=== PATIENT | male | born 1975 | race Caucasian/White ===

== ENCOUNTER 2018-03-29 00:29 | Emergency (ER) | payer OTHER ==
[~2018-03-29] VITALS: Ht 193 cm; Wt 102.1 kg
[~2018-03-29 00:29] MED LIST: ACETAMINOPHEN-1 EAC1 PO; BACTRIM DS TAB1 EACH PO; CEPHALEXIN 500500 M3 PO
[2018-03-29 00:51] LABS: ABSOLUTE BASOPHILS 0.1 thou/uL (0.0-0.2); ABSOLUTE EOSINOPHILS 0.3 thou/uL (0.0-0.7); ABSOLUTE LYMPHOCYTES 2.9 thou/uL (0.8-5.3); ABSOLUTE MONOCYTES 0.5 thou/uL (0.0-1.2); ABSOLUTE NEUTROPHILS 3.1 thou/uL (1.6-8.1); HEMATOCRIT 43.9 % (42.0-52.0); HEMOGLOBIN 14.8 gm/dL (14.0-18.0); LYMPHOCYTES 41.9 %; MCH 28.6 pg (26.0-34.0); MCHC 33.7 g/dL (28.0-37.0); MCV 84.9 fL (80.0-100.0); MONOCYTES 7.9 %; MPV 7.4 fl. (7.2-11.1); NUCLEATED RBCS 0 /100WBC; PLATELET COUNT* 342 thou/uL (150-400); POLYS 45.2 %; RBC 5.17 mil/uL (4.50-6.00); RDW-CV 12.7 % (10.5-14.5); WBC 6.9 thou/uL (4.0-11.0)
[2018-03-29 01:03] LABS: ANION GAP 11 mmol/L (7-16); BUN 19 mg/dL (7-18); CALCIUM 8.7 mg/dL (8.5-10.1); CHLORIDE 104 mmol/L (98-107); CO2 24 mmol/L (21-32); CREATININE 1.2 mg/dL (0.6-1.3); GLUCOSE 126 mg/dL (70-99); POTASSIUM 3.2 mmol/L (3.5-5.1); SODIUM 139 mmol/L (136-145)
[2018-03-29 01:07] LABS: APTT 26.2 Seconds (25.0-31.3); PROTIME 9.9 Seconds (9.20-11.50)
[2018-03-29 01:24] LABS: ALBUMIN 3.5 g/dL (3.4-5.0); ALKALINE PHOSPHATASE 90 U/L (46-116); CK-MB MASS 2.2 ng/mL (<0.5-3.6); LIPASE 119 U/L (73-393); MAGNESIUM 1.7 mg/dL (1.8-2.4); NT-PRO BRAIN NAT PEPTIDE 55 pg/mL (<300); SGOT 31 U/L (15-37); SGPT 55 U/L (30-65); TOTAL BILIRUBIN 0.2 mg/dL (<0.1-1.0); TOTAL PROTEIN 6.8 g/dL (6.4-8.2); TROPONIN-I LEVEL <0.06 ng/mL (<0.06)
[2018-03-29 01:55] VITALS: BP 128/74
--- NOTE | 2018-03-29 16:59 | EKG ---
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: : 1975 Requested By: Prince Richey Order Number: [id number] MD: Amado Lopez Measurements Intervals [place] Rate: 98 P: 73 FL: 138 QRS: 55 QRSD: 112 T: 72 QT: 359 QTc: 459 Interpretive Statements Sinus rhythm PVCs Consider right atrial enlargement Borderline intraventricular conduction delay No previous ECG available for comparison Electronically Signed On 03-29-2018 16:59:04 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
--- NOTE | 2018-03-29 16:59 | EKG ---
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[facility] : 1975 Requested By: Prince Richey Order Number: [id number] MD: Amado Lopez Measurements Intervals [place] Rate: 79 P: 72 [place]: 142 QRS: 54 QRSD: 117 T: 78 QT: 386 QTc: 443 Interpretive Statements Sinus rhythm Consider right atrial enlargement ST elev, probable normal early repol pattern No previous ECG available for comparison Electronically Signed On 03-29-2018 16:59:27 REGISTERED NURSE STEP DOWN by Amado Lopez [email or web address] <ELECTRONICALLY SIGNED> By: Amado Lopez MD, [facility] 03/29/18 1659 0134 0134 Amado Lopez MD, [facility] /EPI
== END 2018-03-29 01:58 ==
LOC: M.ERS 00:29
PROVIDERS: Family Medicine
DX: R07.89 Other chest pain (principal)